=== PATIENT | male | born 1945 | race Caucasian/White ===

== ENCOUNTER 2018-07-22 15:12 | Emergency (ER) | payer MEDICARE ==
[2018-07-22] MEDS ORDERED: MORPHINE SULFATE 10 MG/ML IV ONE (15:40)
[2018-07-22] MEDS ORDERED: Zofran 4 MG/2 ML VIAL IV ONE (15:40)
[2018-07-22] MEDS ORDERED: Sodium Chloride 0.9% 1000 ML 1,000 ML IV SCH (15:45)
--- NOTE | 2018-07-22 15:46 | ERPHSYRPT ---
- History of Present Illness Time Seen by Provider: 07/22/18 15:35 Historian: patient Exam Limitations: clinical condition Physician History: PATIENT WITH A HISTORY OF PANCREATITIS, HYPERTENSION, COMPLAINS OF RIGHT LOWER ABDOMINAL PAIN SINCE 3:30 AM TODAY, RADIATES TO HIS PENIS, DENIES FEVER, NAUSEA , EMESIS, FEVER OR DIARRHEA. Timing/Duration: today (AT 0330) Activities at Onset: none Quality: sharpness, stabbing Abdominal Pain Onset Location: RLQ, flank Pain Radiation: other (PENIS) Severity of Pain-Max: moderate Severity of Pain-Current: mild Modifying Factors: Improves With: nothing Associated Symptoms: denies symptoms Previous symptoms: no prior history Allergies/Adverse Reactions: No Known Drug Allergies Allergy (Verified 07/22/18 15:32) Home Medications: Albuterol 8 gm Mdi Hfa [Ventolin Hfa MDI] 1 puff IH Q4H PRN PRN 11/06/11 [ History] Alprazolam [Alprazolam ER] 1 mg PO TID PRN 11/06/11 [History] Hydrocodon-Acetaminoph 7.5-325 1 tab PO Q6H PRN PRN 11/06/11 [History] Omeprazole [Prilosec] 20 mg PO HS 11/06/11 [History] Aspirin [Turney Aspirin EC] 81 mg PO DAILY 07/22/18 [History] Atorvastatin Calcium [Lipitor] 20 mg PO DAILY 07/22/18 [History] Metoprolol Tartrate 50 mg [Lopressor 50 MG] 50 mg PO BID 07/22/18 [History ] Topiramate [Topamax] 200 mg PO BID 07/22/18 [History] Valsartan 160 mg PO DAILY 07/22/18 [History] Hx Tetanus, Diphtheria Vaccination/Date Given: (na) Hx Influenza Vaccination/Date Given: No Hx Pneumococcal Vaccination/Date Given: No - Review of Systems Constitutional: No Fever, No Chills Eyes: No Symptoms Ears, Nose, & Throat: No Symptoms Respiratory: No Symptoms, No Cough, No Dyspnea Cardiac: No Symptoms, No Chest Pain, No Edema, No Syncope Abdominal/Gastrointestinal: Abdominal Pain, No Nausea, No Vomiting, No Diarrhea Genitourinary Symptoms: No Dysuria Musculoskeletal: No Symptoms, No Back Pain, No Neck Pain Skin: No Rash Neurological: No Symptoms, No Dizziness, No Focal Weakness, No Sensory Changes Psychological: No Symptoms Endocrine: No Symptoms All Other Systems: Reviewed and Negative - Past Medical History Pertinent Past Medical History: Yes Neurological History: No Pertinent History ENT History: No Pertinent History Cardiac History: Hypertension Respiratory History: No Pertinent History Endocrine Medical History: No Pertinent History Musculoskeletal History: Arthritis GI Medical History: Pancreatitis History: No Pertinent History Psycho-Social History: Depression Male Reproductive Disorders: No Pertinent History - Past Surgical History Past Surgical History: Yes Neuro Surgical History: No Pertinent History Cardiac: No Pertinent History Respiratory: No Pertinent History Gastrointestinal: Hernia Repair Genitourinary: No Pertinent History Musculoskeletal: Orthopedic Surgery Male Surgical History: No Pertinent History - Social History Smoking Status: Current every day smoker How long have you smoked: 50 yrs Exposure to second hand smoke: No Drug Use: marijuana Patient Lives Alone: No - Nursing Vital Signs Nursing Vital Signs: Initial Vital Signs Temperature 97.5 F 07/22/18 15:20 Pulse Rate 75 07/22/18 15:20 Respiratory Rate 18 07/22/18 15:20 Blood Pressure 193/89 07/22/18 15:20 O2 Sat by Pulse Oximetry 95 07/22/18 15:20 Pain Scale Pain Intensity 2 - Physical Exam General Appearance: no apparent distress, alert Eye Exam: PERRL/EOMI, eyes nml inspection Ears, Nose, Throat Exam: normal ENT inspection, pharynx normal, moist mucous membranes Neck Exam: normal inspection, non-tender, supple, full range of motion Respiratory Exam: normal breath sounds, lungs clear, No respiratory distress Cardiovascular Exam: regular rate/rhythm, normal heart sounds Gastrointestinal/Abdomen Exam: soft, normal bowel sounds, tenderness (RIGHT LOWER QUAD TENDERNESS, MINIMAL GUARDING), No mass Back Exam: normal inspection, normal range of motion, CVA tenderness (MINIMAL RIGHT CVA TENDERNESS), No vertebral tenderness Extremity Exam: normal inspection, normal range of motion, pelvis stable Neurologic Exam: alert, oriented x 3, cooperative, normal mood/affect, nml cerebellar function, sensation nml, No motor deficits Skin Exam: normal color, warm, dry SpO2 Interpretation: normal SpO2: 98 - CT Exams Abdomen/Pelvis CT Interpretation: Discussed w/radiologist (MODERATE RIGHT HYDRONEPHROSIS WITH PERINEPHRIC EDEMA AND STRANDING, MILD HYDROURETER, BUT NO STONE R/O RECENT PASSAGE OF STONE, NORMAL APPENDIX) Ordered Tests: Active Orders 24 hr Category Date Time Status Clean Catch Urine Specimen STAT Care 07/22/18 15:40 Active IV Insertion STAT Care 07/22/18 15:40 Active ABDOMEN AND PELVIS W/0 CONTRAS [CT] Stat Exams 07/22/18 15:47 Taken AMYLASE Stat Lab 07/22/18 15:56 Completed CBC W DIFF Stat Lab 07/22/18 15:40 Completed CMP Stat Lab 07/22/18 15:56 Completed LIPASE Stat Lab 07/22/18 15:56 Completed PT INR [PROTIME WITH INR] Stat Lab 07/22/18 15:56 Completed UA W/RFX UR CULTURE Stat Lab 07/22/18 17:42 Completed Medication Summary Generic Name Dose Route Start Last Admin Trade Name Freq PRN Reason Stop Dose Admin Sodium Chloride 1,000 mls @ 200 mls/hr 07/22/18 15:45 07/22/18 16:23 Sodium Chloride 0.9% 1000 Ml IV 08/21/18 15:44 200 mls/hr .Q5H CARLO Administration Discontinued Medications Generic Name Dose Route Start Last Admin Trade Name Freq PRN Reason Stop Dose Admin Fentanyl Citrate 100 mcg 07/22/18 18:35 07/22/18 18:38 Sublimaze 100 Mcg/2 Ml IV 07/22/18 18:36 100 mcg STAT ONE Administration Fentanyl Citrate Confirm 07/22/18 18:37 Sublimaze 100 Mcg/2 Ml Administered 07/22/18 18:38 Dose 100 mcg .ROUTE .STK-MED ONE Morphine Sulfate 6 mg 07/22/18 15:40 07/22/18 16:23 Morphine Sulfate 10 Mg/Ml IV 07/22/18 15:41 6 mg STAT ONE Administration Morphine Sulfate Confirm 07/22/18 16:22 Morphine Sulfate 10 Mg/Ml Administered 07/22/18 16:23 Dose 10 mg .ROUTE .STK-MED ONE Ondansetron HCl 4 mg 07/22/18 15:40 07/22/18 16:23 Zofran 4 Mg/2 Ml Vial IV 07/22/18 15:41 4 mg STAT ONE Administration Ondansetron HCl Confirm 07/22/18 16:21 Zofran 4 Mg/2 Ml Vial Administered 07/22/18 16:22 Dose 4 mg .ROUTE .STK-MED ONE Lab/Rad Data: Laboratory Result Diagrams 07/22/18 15:40 07/22/18 15:56 Laboratory Results 07/22/18 07/22/18 07/22/18 Range/Units 17:42 15:56 15:56 WBC (4.0-10.5) K/mm3 RBC (4.1-5.6) M/mm3 Hgb (12.5-18.0) gm/dl Hct (42-50) % MCV (78-100) fl MCH (26-32) pg MCHC (32-36) g/dl RDW (11.5-14.0) % Plt Count (150-450) K/mm3 MPV (6-9.5) fl Gran % (36.0-66.0) % Eos # (Auto) (0-0.5) Absolute Lymphs (auto) (1.0-4.6) Absolute Monos (auto) (0.0-1.3) Lymphocytes % (24.0-44.0) % Monocytes % (0.0-12.0) % Eosinophils % (0.00-5.0) % Basophils % (0.0-0.4) % Absolute Granulocytes (1.4-6.9) Basophils # (0-0.4) PT 11.9 (8.83-12.87) SECONDS INR 1.02 (0.8-3.0) Sodium 142 (137-145) mmol/L Potassium 4.0 (3.5-5.1) mmol/L Chloride 109 H (98-107) mmol/L Carbon Dioxide 23 (22-30) mmol/L Anion Gap 14.2 (5-15) MEQ/L BUN 19 (9-20) mg/dL Creatinine 1.38 H (0.66-1.25) mg/dL Estimated GFR 53.7 ML/MIN Glucose 127 H (74-106) mg/dL Calcium 9.4 (8.4-10.2) mg/dL Total Bilirubin 0.30 (0.2-1.3) mg/dL AST 30 (17-59) U/L ALT 30 (0-50) U/L Alkaline Phosphatase 82 (38-126) U/L Serum Total Protein 7.5 (6.3-8.2) g/dL Albumin 4.4 (3.5-5.0) g/dL Amylase 87 (30-110) U/L Lipase 80 (23-300) U/L Urine Color YELLOW (YELLOW) Urine Appearance SLIGHTLY CLOUDY (CLEAR) Urine pH 7.0 (5-6) Ur Specific Sebastian 1.015 (1.005-1.025) Urine Protein NEGATIVE (Negative) Urine Ketones NEGATIVE (NEGATIVE) Urine Blood NEGATIVE (0-5) Tyrone/ul Urine Nitrite NEGATIVE (NEGATIVE) Urine Bilirubin NEGATIVE (NEGATIVE) Urine Urobilinogen NEGATIVE (0-1) mg/dL Ur Leukocyte Esterase NEGATIVE (NEGATIVE) Urine WBC (Auto) NONE (0-5) /HPF Urine RBC (Auto) NONE (0-2) /HPF U Epithel Cells (Auto) NONE (FEW) /HPF Urine Bacteria (Auto) NONE (NEGATIVE) /HPF Urine Culture Reflexed NO (NO) Urine Glucose NEGATIVE (NEGATIVE) mg/dL 07/22/18 Range/Units 15:40 WBC 8.4 (4.0-10.5) K/mm3 RBC 4.44 (4.1-5.6) M/mm3 Hgb 13.6 (12.5-18.0) gm/dl Hct 41.1 L (42-50) % MCV 92.6 (78-100) fl MCH 30.6 (26-32) pg MCHC 33.1 (32-36) g/dl RDW 12.9 (11.5-14.0) % Plt Count 226 (150-450) K/mm3 MPV 9.6 H (6-9.5) fl Gran % 67.4 H (36.0-66.0) % Eos # (Auto) 0.08 (0-0.5) Absolute Lymphs (auto) 1.93 (1.0-4.6) Absolute Monos (auto) 0.69 (0.0-1.3) Lymphocytes % 23.0 L (24.0-44.0) % Monocytes % 8.2 (0.0-12.0) % Eosinophils % 1.0 (0.00-5.0) % Basophils % 0.4 (0.0-0.4) % Absolute Granulocytes 5.66 (1.4-6.9) Basophils # 0.03 (0-0.4) PT (8.83-12.87) SECONDS INR (0.8-3.0) Sodium (137-145) mmol/L Potassium (3.5-5.1) mmol/L Chloride (98-107) mmol/L Carbon Dioxide (22-30) mmol/L Anion Gap (5-15) MEQ/L BUN (9-20) mg/dL Creatinine (0.66-1.25) mg/dL Estimated GFR ML/MIN Glucose (74-106) mg/dL Calcium (8.4-10.2) mg/dL Total Bilirubin (0.2-1.3) mg/dL AST (17-59) U/L ALT (0-50) U/L Alkaline Phosphatase (38-126) U/L Serum Total Protein (6.3-8.2) g/dL Albumin (3.5-5.0) g/dL Amylase (30-110) U/L Lipase (23-300) U/L Urine Color (YELLOW) Urine Appearance (CLEAR) Urine pH (5-6) Ur Specific Sebastian (1.005-1.025) Urine Protein (Negative) Urine Ketones (NEGATIVE) Urine Blood (0-5) Tyrone/ul Urine Nitrite (NEGATIVE) Urine Bilirubin (NEGATIVE) Urine Urobilinogen (0-1) mg/dL Ur Leukocyte Esterase (NEGATIVE) Urine WBC (Auto) (0-5) /HPF Urine RBC (Auto) (0-2) /HPF U Epithel Cells (Auto) (FEW) /HPF Urine Bacteria (Auto) (NEGATIVE) /HPF Urine Culture Reflexed (NO) Urine Glucose (NEGATIVE) mg/dL - Progress Progress: improved Progress Note: 07/22/18 15:51 IV NORMAL SALINE AT 200ML/HR, ZOFRAN 4MG, MORPHINE 6MG IV 07/22/18 18:35 FENTANYL 100MCG IV Counseled pt/family regarding: lab results, diagnosis, need for follow-up - Departure Time of Disposition: 19:10 Departure Disposition: Home Clinical Impression: RIGHT RENAL COLIC Condition: Stable Critical Care Time: No Referrals: SMITH FERNANDEZ MD [Primary Care Provider] - Additional Instructions: CONSULT UROLOGIST DR BUSTILLOS FOR A FOLLOWUP APPOINTMENT. FLOMAX 0.4MG TAKE AT BEDTIME FOR 10 DAYS. STRAIN YOUR URINE DAILY FOR 4 DAYS. CONSULT YOUR PRIMARY CARE PROVIDER FOR REVIEW OF EMERGENCY ROOM VISIT. INCREASE NORCO TO EVERY 4-6 HOURS NEEDED. RETURN TO EMERGENCY FOR INCREASING PAIN. Prescriptions: Tamsulosin HCl 0.4 mg [Flomax 0.4 MG] 0 mg PO QHS #10 cap
[2018-07-22 15:51] LABS: BASOPHIL % 0.4 % (0.0-0.4); Basophil (Absolute #) 0.03 (0-0.4); Eosinophil (Absolute #) 0.08 (0-0.5); Granulocyte Absolute (ANC) 5.66 (1.4-6.9); Granulocytes % 67.4 % (36.0-66.0); Hematocrit 41.1 % (42-50); Hemoglobin 13.6 gm/dl (12.5-18.0); Lymphocyte (Absolute #) 1.93 (1.0-4.6); Mean Cell Volume 92.6 fl (78-100); Mean Corpuscular Hemoglobin 30.6 pg (26-32); Mean Corpuscular Hgb Concent. 33.1 g/dl (32-36); Mean Platelet Volume 9.6 fl (6-9.5); Monocyte (Absolute #) 0.69 (0.0-1.3); Monocytes % 8.2 % (0.0-12.0); Platelet Count 226 K/mm3 (150-450); Red Blood Count 4.44 M/mm3 (4.1-5.6); Red Cell Distribution Width 12.9 % (11.5-14.0); White Blood Count 8.4 K/mm3 (4.0-10.5)
[2018-07-22 15:58] LABS: INR 1.02 (0.8-3.0); PROTIME 11.9 SECONDS (8.83-12.87)
[2018-07-22 16:03] LABS: ALBUMIN 4.4 g/dL (3.5-5.0); ANION GAP 14.2 MEQ/L (5-15); BILIRUBIN,TOTAL 0.3 mg/dL (0.2-1.3); Calcium 9.4 mg/dL (8.4-10.2); Creatinine 1 1.38 mg/dL (0.66-1.25); Total Protein 7.5 g/dL (6.3-8.2)
[2018-07-22] MEDS ORDERED: Zofran 4 MG/2 ML VIAL ONE (16:21)
[2018-07-22] MEDS ORDERED: Sodium Chloride 0.9% 1000 ML 1,000 ML ONE (16:22)
[2018-07-22] MEDS ORDERED: MORPHINE SULFATE 10 MG/ML ONE (16:22)
[2018-07-22 17:57] LABS: Appearance SLIGHTLY CLOUDY (CLEAR); Bilirubin NEGATIVE (NEGATIVE); Blood NEGATIVE Ery/ul (0-5); Glucose NEGATIVE (NEGATIVE); Ketones NEGATIVE (NEGATIVE); Leukocyte Esterase NEGATIVE (NEGATIVE); Nitrite NEGATIVE (NEGATIVE); Protein,Urine Dip NEGATIVE (Negative); Specific Gravity 1.015 (1.005-1.025); Urobilinogen NEGATIVE mg/dL (0-1)
[2018-07-22] MEDS ORDERED: SUBLIMAZE 100 MCG/2 ML IV ONE (18:35)
[2018-07-22] MEDS ORDERED: SUBLIMAZE 100 MCG/2 ML ONE (18:37)
[2018-07-22 18:45] VITALS: O2SAT 98
[2018-07-22 19:22] VITALS: BP 121/77; PULSE 88
--- NOTE | 2018-07-22 22:46 | XRAY ---
Indication: Right abdominal pain. Multiple contiguous axial images obtained through the abdomen and pelvis without contrast as ordered. Comparison: None Lung bases demonstrates minimal bibasilar atelectasis/scarring. No infiltrate or effusion. Heart is not enlarged. Noncontrasted stomach and bowel loops appear nonobstructed. Normal appendix. Minimal scattered colonic diverticulosis without diverticulitis. No free fluid/air. Right kidney appears moderately hydronephrotic with renal edema, perinephric stranding, and asymmetrically prominent right ureter but no calculus. Findings can be seen with recent passage of calculus. Incidental left adrenal hypertrophy. Remaining liver, gallbladder, pancreas, spleen, right adrenal gland, left kidney, left ureter, and bladder appear unremarkable for noncontrast exam. Mild aortoiliac calcifications without AAA. Osseous structures intact with mild degenerative changes throughout the spine and mild levorotoscoliosis centered at L3. Incidental bilateral inguinal hernia repair. Impression: 1. Right renal edema, perinephric stranding, hydronephrosis, and prominent ureter possibly from recent passage of calculus. No calculus or evidence for obstructive uropathy on the left. 2. Incidental colonic diverticulosis and left adrenal hypertrophy. CTDI 23.68
== END 2018-07-22 19:20 | disposition home or self-care (01) ==
LOC: ED 15:12
DX: N23 Unspecified renal colic (principal); I10 Essential (primary) hypertension; R10.31 Right lower quadrant pain; K86.1 Other chronic pancreatitis; Z79.899 Other long term (current) drug therapy
CPT/HCPCS: 36000; 36415; 74176; 80053; 81001; 82150; 83690; 85025; 85610; 96360; 96361; 96374; 96375; 99284; J2270; J2405; J3010